=== PATIENT | male | born 1945 ===

== ENCOUNTER 2024-08-25 05:33 | Day surgery (SDC) | payer OTHER ==
[2024-08-21 08:38] VITALS: BP 137/74
[2024-08-21 08:47] LABS: PH,URINE 5.5 (5.0-8.0); URINE APPEARANCE Clear; URINE BILIRRUBIN Negative (NEGATIVE); URINE BLOOD Negative; URINE COLOR Yellow; URINE GLUCOSE Negative (NEGATIVE); URINE KETONE Negative (NEGATIVE); URINE LEUKOCYTE Negative; URINE NITRATE Negative; URINE PROTEIN Trace (NEGATIVE); URINE UROBILINOGEN 0.2 E.U./dl
[2024-08-21 08:51] LABS: URINE EPITHELIAL CELLS 5.8 uL (0.0-38.8); URINE WBC 3.3 uL (0.0-23.2)
[2024-08-21 09:01] LABS: BASO % 0.3 % (0.1-1.2); EOS # 0.15 (0.04-0.54); EOS % 1.7 % (0.7-7.0); HEMATOCRIT 47.8 % (40.1-51.0); HEMOGLOBIN 16.4 g/dL (13.7-17.5); LYMPH # 1.98 (1.18-3.74); LYMPH % 22.8 % (19.3-53.1); MEAN CORPUSCULAR HEMOGLOBIN 29.9 pg (25.6-32.2); MONO # 1.04 (0.24-0.82); NEUT # 5.47 (1.56-6.13); PLATELET COUNT 252 K/uL (163-369); RED BLOOD COUNT 5.48 M/uL (4.63-6.08); RED CELL DISTRIBUTION WIDTH 13.3 % (11.6-14.4)
[2024-08-21 09:08] LABS: PARTIAL THROMBOPLASTIN TIME 26.8 SECONDS (22.0-34.0); PROTHROMBIN TIME 10.9 SECONDS (9.0-11.5)
[2024-08-21 09:32] LABS: ALBUMIN 4.1 gm/dL (3.4-5.0); CALCIUM 9.2 mg/dL (8.5-10.1); CREATININE SERUM 1.48 mg/dL (0.70-1.30); GFR 46.09; PHOSPHOROUS 2.8 mg/dL (2.5-4.9); POTASSIUM 3.54 mEq/L (3.5-5.1)
[2024-08-21 09:42] LABS: URINE BACTERIA 2.4 uL (0.0-1933); URINE CAST 0.29 uL (0.0-1.40); URINE RBC 0.4 uL (0.0-20.8)
[~2024-08-25] VITALS: Ht 162.6 cm; Wt 83.9 kg
[~2024-08-25 05:33] MED LIST: ADULT LOW DOSE81 M1; IRBESARTAN-HCT1 EAC1; METFORMIN HCL500 M3; SYNTHROID112 MCG; TAMS0.4C; [UNRECOGNIZED DRUG - OTHER]
[2024-08-25] MEDS ORDERED: CEFAZOLIN SODIUM 1,000 MG VIAL ONE (06:56)
[2024-08-25] MEDS ORDERED: EPINEPHRINE HCL/PF 1 MG/ML AMPUL ONE (06:57)
[2024-08-25] MEDS ORDERED: POVIDONE-IODINE 118 ML BOTT TOP ONE (06:58)
[2024-08-25] MEDS ORDERED: LIDOCAINE HCL 1%/EPINEPHRINE 20ML VIAL IJ ONE (06:58)
[2024-08-25] MEDS ORDERED: CIPROFLOXACIN2.5 ML OTIC (11:02)
[2024-08-25] MEDS ORDERED: CEPHALEXIN500 MG PO (11:02)
[2024-08-25] MEDS ORDERED: ACETAMINOPHEN 500 MG GEL..CAP PO ONE (12:15)
== END 2024-08-25 12:40 | disposition home or self-care (01) ==
LOC: CIR.AMB 05:33
PROVIDERS: ATTEND Otolaryngology Otology & Neurotology
DX: H74.21 Discontinuity and dislocation of right ear ossicles (principal); H71.21 Cholesteatoma of mastoid, right ear; H72.821 Total perforations of tympanic membrane, right ear; H90.A11 Conductive hearing loss, unilateral, right ear with restricted hearing on the contralateral side